=== PATIENT | male | born 1970 | race American Indian/Alaskan Native ===

== ENCOUNTER 2022-02-02 21:16 | Emergency (ER) | payer SELFPAY ==
[2022-02-02] MEDS ORDERED: levETIRAcetam 1000 MG/NS 0.75% 1,000 MG/100 ML BAG IV ONE (22:43)
[2022-02-02] MEDS ORDERED: SODIUM CHLORIDE 0.9% 1000 ML 1,000 ML IV ONE (22:43)
[2022-02-02] MEDS ORDERED: MIDAZOLAM 5 MG/5 ML INJ MDV IV ONE (22:43)
--- NOTE | 2022-02-02 22:51 | Emergency Department Report ---
ED General Adult HPI - General Chief complaint: Seizure Stated complaint: SEIZURE Time Seen by Provider: 02/02/22 22:29 Source: patient, EMS Mode of arrival: Wheelchair Limitations: No Limitations - History of Present Illness Initial comments: 51 yo M with history heavy use of marijuana who now present diffuse abdominal pain associated with nausea and non bloody emesis that started 3 days ago but worsen inflight from [place] to [place]. He flight was diverted to [place] because of her sickness. Pt says usually have non epilepic seizure with her symp toms. No fever or chills reported. Pt was admitted to the hospital in [place] and discharged today. No other modifying or associated factors recorded. Severity scale (0 -10): 0 - Related Data Allergies Allergy/AdvReac Type Severity Reaction Status Date / Time No Known Allergies Allergy Unverified 02/02/22 22:08 ED Review of Systems ROS: Stated complaint: SEIZURE Other details as noted in HPI Comment: All other systems reviewed and negative Gastrointestinal: abdominal pain, nausea, vomiting Neurological: other (seizure ) ED Past Medical Hx - Past Medical History Previous Medical History?: Yes Hx Hypertension: Yes Hx Seizures: Yes - Surgical History Past Surgical History?: No - Social History Smoking Status: Former Smoker ED Physical Exam - General Limitations: No Limitations General appearance: alert, in no apparent distress - Head Head exam: Present: normal inspection - Eye Eye exam: Present: normal appearance Pupils: Present: normal accommodation - ENT ENT exam: Present: normal exam, normal orophraynx, mucous membranes dry - Neck Neck exam: Present: normal inspection, full ROM. Absent: tenderness - Respiratory Respiratory exam: Present: normal lung sounds bilaterally. Absent: respiratory distress, accessory muscle use - Cardiovascular Cardiovascular Exam: Present: regular rate, normal rhythm, normal heart sounds - GI/Abdominal GI/Abdominal exam: Present: soft, tenderness (diffused), normal bowel sounds. Absent: distended - Extremities Exam Extremities exam: Present: normal inspection, full ROM, normal capillary refill. Absent: tenderness, pedal edema - Back Exam Back exam: Present: normal inspection. Absent: tenderness - Neurological Exam Neurological exam: Present: alert, oriented X3 - Psychiatric Psychiatric exam: Present: normal affect, normal mood ED Course Vital Signs 02/02/22 02/02/22 02/02/22 22:03 22:09 23:42 Temperature 97.0 F L Pulse Rate 96 H 101 H Respiratory 15 15 Rate Blood Pressure 159/63 Blood Pressure 180/105 [Right] O2 Sat by Pulse 97 98 99 Oximetry 02/03/22 00:05 Temperature Pulse Rate Respiratory Rate Blood Pressure Blood Pressure 155/89 [Right] O2 Sat by Pulse Oximetry ED Medical Decision Making - Lab Data Result diagrams: 02/02/22 22:59 02/02/22 22:59 - Medical Decision Making Here with abdominal pain with nausea and non bloody emesis with heavy use of marijuana which raises concern for likely cannabis induce emesis --differential but not limited to appendicitis, diverticulitis, cholecystitis, cholelithiasis, nephrolithiasis, gastritis, pancreatitis, duodenitis, colitis, irritable bowel syndrome, cystitis, so in order to rule this out we will go ahead and order routine acute abdomen that include CBC, CMP, urinalysis, and CT imaging of the abdomen/pelvic. In the meantime will go ahead and treat with ivf ns 1L bolus x 1-- versed + haldol + benadryl for symptomatic treatment. pt reports feeling better and sleeping--and labs reviewed and noted to be unremarkable except leukocytosis which is likely reactive from nausea and vomiting-- Critical care attestation.: If time is entered above; I have spent that time in minutes in the direct care of this critically ill patient, excluding procedure time. ED Disposition Clinical Impression: Nausea and vomiting in adult Abdominal pain Qualifiers: Abdominal location: unspecified location Qualified Code(s): R10.9 - Unspecified abdominal pain Disposition: 01 HOME / SELF CARE / HOMELESS Is pt being admited?: No Does the pt Need Aspirin: No Condition: Stable Instructions: Abdominal Pain, Adult, Trsk-[id number], Nausea and Vomiting, Adult, [id number] Additional Instructions: Start with bland diet and advised as tolerated Increase your daily fluid to help your hydration Continue your antibiotics and seizure medicine as prescribed Call and schedule follow-up with your primary doctor in 2 to 3 days for progress Please do not hesitate to call or return to emergency if your symptoms worsen Referrals: TERESO ROSAS MD [Referring] - 3-5 Days Time of Disposition: 01:56
[2022-02-02] MEDS ORDERED: diphenhydrAMINE 50 MG/ML VIAL IV ONE (22:57)
[2022-02-02] MEDS ORDERED: HALOPERIDOL LACTATE 5 MG/1 ML INJ IM ONE (22:57)
[2022-02-02 23:18] LABS: Hematocrit 45.1 % (35.5-45.6); Hemoglobin 15.2 gm/dl (11.8-15.2); Mean Corpuscular HGB Conc 34 % (32-34); Mean Corpuscular Volume 89 fl (84-94); Platelet Count 298 K/mm3 (140-440); Red Blood Count 5.09 M/mm3 (3.65-5.03); Red Cell Distribution Width 13.2 % (13.2-15.2)
--- NOTE | 2022-02-02 23:56 | Cat Scan Report ---
CT CHEST WITHOUT CONTRAST INDICATION / CLINICAL INFORMATION: aspiration. TECHNIQUE: Axial CT images were obtained through the chest without contrast. All CT scans at this [facility] ation are performed using CT dose reduction for ALARA by means of automated exposure control. COMPARISON: None available. FINDINGS: CHEST: LOWER NECK: Soft tissues and musculature of the lower neck demonstrate no significant abnormality. Th e thyroid demonstrates no significant abnormality. THORACIC AORTA: No significant abnormality. PULMONARY ARTERY:No significant abnormality. HEART: Heart size normal. Trace pericardial effusion. CORONARY ARTERY CALCIFICATION: Absent -- None. MEDIASTINUM / ANTOINE: No significant abnormality. ESOPHAGUS: No significant abnormality. LYMPH NODES: No adenopathy demonstrated within the axilla, antoine, or mediastinum. LUNGS: Subpleural noncalcified pulmonary nodules left lower lobe image #55; series #2 measuring up to 5 mm greatest dimension. Lungs are otherwise clear. Mild dependent atelectasis of left lower lobe pr esent. PLEURA: No pleural effusion. No pneumothorax. THORACIC SOFT TISSUES: No significant abnormality of the chest wall or upper thoracic musculature. OSSEOUS STRUCTURES: No significant abnormality of included osseous structures. UPPER ABDOMEN: Moderate bilateral perinephric fat stranding. Nonspecific finding that could reflect s equelae of prior obstruction. Infectious process not excluded. ADDITIONAL CHEST FINDINGS: None. IMPRESSION: 1. Multiple incidental pulmonary nodule(s) in the left lower lobe measuring 5 mm with perifissural/gottlieb bpleural characteristics. Recommendation according to Fleischner Society 2017 Guidelines: Low Risk Pa tient: No routine follow-up; High Risk Patient: Optional CT at 12 months. 2. No acute findings within the chest. No CT evidence of aspiration. 3. Bilateral perinephric fat stranding and correlation with urinalysis and culture are recommended. Signer Name: Robi Sands II, MD Signed: 02/02/2022 11:51 PM Workstation Name: [id number]
--- NOTE | 2022-02-03 | Cat Scan Report ---
CT ABDOMEN AND PELVIS WITHOUT CONTRAST INDICATION / CLINICAL INFORMATION: abd pain. TECHNIQUE: Axial CT images were obtained through the abdomen and pelvis without IV contrast. All CT scans at this location are performed using CT dose reduction for ALARA by means of automated exposure control. COMPARISON: CT chest same date. FINDINGS: LOWER CHEST: Please see comparison study for findings within the chest. LIVER: No focal lesion. No acute findings. GALLBLADDER / BILE DUCTS: No significant abnormality. Biliary ducts grossly unremarkable. SPLEEN: No significant abnormality. PANCREAS: No significant abnormality. ADRENALS: 1.2 cm low-attenuation adrenal nodule medial limb right adrenal gland. Findings compatible with adenoma or possibly small myelolipoma. KIDNEYS/URETERS: Moderate bilateral perinephric fat stranding. No hydronephrosis, urolithiasis, or so lid mass. STOMACH / DUODENUM / SMALL BOWEL: The stomach, duodenum, and small bowel demonstrate no significant a bnormality. No specific abnormality of the mesentery demonstrated. COLON: Diverticulosis without acute inflammation. APPENDIX: No significant abnormality. PERITONEUM: No free air or free fluid are present within the abdomen or pelvis. LYMPH NODES: No significant adenopathy. AORTA / ARTERIES: No significant abnormality. IVC / VEINS: No significant abnormality. URINARY BLADDER: No significant abnormality. REPRODUCTIVE ORGANS: Small right ovarian cyst measures up to 2.8 cm greatest dimension. Uterine fibro ids are present. Uterus and ovaries otherwise are unremarkable. SKELETAL SYSTEM: No significant abnormality. ADDITIONAL ABDOMINAL/PELVIC FINDINGS: None. IMPRESSION: 1. No acute findings within the abdomen or pelvis. Signer Name: Robi Sands II, MD Signed: 02/02/2022 11:55 PM Workstation Name: [id number]
[2022-02-03 00:21] LABS: Mucus,Urine 1+ /HPF
[2022-02-03 00:23] LABS: Amphetamine Screen,Urine Negative; Cocaine Screen,Urine Negative; Methadone Screen,Urine Negative; Opiate Screen,Urine Negative
[2022-02-03 00:34] LABS: Bilirubin,Urine Negative (Negative); Color,Urine Yellow (Yellow)
[2022-02-03 00:35] LABS: Blood,Urine Large (Negative); Urobilinogen,Urine < 2.0 mg/dL (<2.0)
[2022-02-03 00:37] LABS: Benzodiazepines Screen,Urine PRESUMPTIVE POSITIVE; Cannabinoid Screen,Urine PRESUMPTIVE POSITIVE
[2022-02-03 00:53] LABS: Alanine Aminotransferase 11 units/L (7-56); Albumin 4.2 g/dL (3.9-5); Blood Urea Nitrogen 9 mg/dL (9-20); Calcium 9.5 mg/dL (8.4-10.2); Hemolysis Index 105
[2022-02-03 00:59] LABS: BUN/Creatinine Ratio 15
[2022-02-03 01:23] LABS: Band Neutrophils # (Manual) 0.2 K/mm3; Basophils % (Manual) 0 % (0.0-1.8); Eosinophils % (Manual) 0 % (0.0-4.3); Platelet Estimate Consistent w Auto; RBC Morphology Normal; Total Cells Counted 100
[2022-02-03 03:45] VITALS: BP 175/88
== END 2022-02-03 03:00 | disposition home or self-care (01) ==
LOC: ED 21:16
DX: R11.2 Nausea with vomiting, unspecified (principal); R10.9 Unspecified abdominal pain; Z87.891 Personal history of nicotine dependence; I10 Essential (primary) hypertension; Z79.899 Other long term (current) drug therapy
CPT/HCPCS: 36415; 71250; 74176; 80053; 80307; 81001; 85007; 85025; 96372; 96374; 96375; 99284; J1200; J1630; J1953; J2250; J7030; 80320; G0480